=== PATIENT | male | born 1990 | race African-American/Black ===

== ENCOUNTER 2017-01-01 06:27 | Emergency (ER) | payer MEDICAID ==
[~2017-01-01] VITALS: Ht 167.6 cm; Wt 104.0 kg
[2017-01-01 06:57] LABS: BASOPHILS % 0.4 % (0.0-2.0); EOSINOPHILS % 0.1 % (0.0-5.0); HEMATOCRIT. 41.8 % (42.0-52.0); HEMOGLOBIN. 14.4 g/dL (14.0-18.0); LYMPHOCYTES % 18.6 % (20.0-50.0); MEAN CORPUSCULAR HEMOGLOBIN 30.4 pg (28.0-32.0); MEAN CORPUSCULAR VOLUME 88.6 fL (80.0-94.0); MEAN PLATELET VOLUME 7.6 fl (7.4-10.4); MONOCYTES % 14.7 % (2.0-8.0); NEUTROPHILS % 66.2 % (40.0-76.0); PLATELET 401 x1000/uL (130-400); RED BLOOD CELL COUNT 4.72 mill/uL (4.7-6.1); RED CELL DISTRIBUTION WIDTH 15.1 % (11.6-14.6)
[2017-01-01 06:58] LABS: CARBON DIOXIDE 22 mEq/L (21-32); CHLORIDE 110 mEq/L (98-107); ETHANOL BLOOD 104 mg/dL
[2017-01-01] MEDS ORDERED: LORAZEPAM 1MG TABLET PO ONE (07:00)
[2017-01-01 07:53] LABS: *AMPHETAMINES SCREEN URINE NEGATIVE (NEGATIVE); *BARBITURATES SCREEN URINE NEGATIVE (NEGATIVE); *BENZODIAZEPINES SCREEN URINE NEGATIVE (NEGATIVE); *COCAINE SCREEN URINE NEGATIVE (NEGATIVE); CANNABINOID URINE SCREEN NEGATIVE (NEGATIVE); METHADONE URINE SCREEN NEGATIVE (NEGATIVE); OPIATES URINE SCREEN NEGATIVE (NEGATIVE); PHENCYCLIDINE URINE SCREEN NEGATIVE (NEGATIVE)
[2017-01-01 13:29] VITALS: BP 156/80
== END 2017-01-01 14:32 | disposition home or self-care (01) ==
LOC: EDBD 06:27 → ER 06:27
DX: F20.9 Schizophrenia, unspecified (principal); F10.129 Alcohol abuse with intoxication, unspecified; R45.851 Suicidal ideations; R44.0 Auditory hallucinations
CPT/HCPCS: 36415; 80048; 80305; 80307; 80329; 85025; 99284; G0482; Z7610

== ENCOUNTER 2017-09-12 20:14 | Emergency (ER) | payer MEDICAID ==
[~2017-09-12] VITALS: Ht 177.8 cm; Wt 100.0 kg
[2017-09-12] MEDS ORDERED: LIDOCAINE HCL 1%/EPI 1:200,000 30 ML VIAL MC ONE (20:45)
[2017-09-12] MEDS ORDERED: BACITRACIN ZINC OINT UDPKT TOP ONE (20:45)
[2017-09-12] MEDS ORDERED: TETANUS, DIPHTHERIA, PERTUSSIS VAC/PF 0.5ML (>7YR OLD) IM ONE (20:45)
[2017-09-12] MEDS ORDERED: ACETAMINOPHEN 325MG TABLET PO ONE (21:00)
[2017-09-12 21:22] LABS: HEMATOCRIT. 43.6 % (42.0-52.0); HEMOGLOBIN. 14.7 g/dL (14.0-18.0); MEAN CORPUSCULAR HEMOGLOBIN 31.3 pg (28.0-32.0); MEAN CORPUSCULAR VOLUME 92.3 fL (80.0-94.0); MEAN PLATELET VOLUME 8.2 fl (7.4-10.4); PLATELET 337 x1000/uL (130-400); RED BLOOD CELL COUNT 4.72 mill/uL (4.7-6.1); RED CELL DISTRIBUTION WIDTH 16.4 % (11.6-14.6)
[2017-09-12 21:27] LABS: CHLORIDE 107 mEq/L (98-107); ETHANOL BLOOD 263 mg/dL
[2017-09-12 21:46] LABS: *AMPHETAMINES SCREEN URINE NEGATIVE (NEGATIVE); *BARBITURATES SCREEN URINE NEGATIVE (NEGATIVE); *BENZODIAZEPINES SCREEN URINE PRESUMTIVE POSITIVE (NEGATIVE); *COCAINE SCREEN URINE NEGATIVE (NEGATIVE); METHADONE URINE SCREEN NEGATIVE (NEGATIVE); OPIATES URINE SCREEN NEGATIVE (NEGATIVE)
[2017-09-12 21:47] LABS: CANNABINOID URINE SCREEN NEGATIVE (NEGATIVE); PHENCYCLIDINE URINE SCREEN NEGATIVE (NEGATIVE)
[2017-09-12 21:56] LABS: PLATELET ESTIMATE NORMAL
[2017-09-12 23:00] VITALS: BP 124/76
== END 2017-09-12 23:02 | disposition home or self-care (01) ==
LOC: ER 20:27
DX: S01.412A Laceration without foreign body of left cheek and temporomandibular area, initial encounter (principal); F20.9 Schizophrenia, unspecified; F17.200 Nicotine dependence, unspecified, uncomplicated; Y08.89XA Assault by other specified means, initial encounter; Y93.89 Activity, other specified; Y92.89 Other specified places as the place of occurrence of the external cause; Y99.8 Other external cause status
CPT/HCPCS: 12013; 36415; 70450; 80048; 80305; 85025; 90471; 90715; 99285; G0482; X7700; Z7610

== ENCOUNTER 2018-08-14 00:54 | Emergency (ER) | payer MEDICAID ==
[~2018-08-14] VITALS: Ht 167.6 cm; Wt 88.5 kg
[2018-08-14 02:21] LABS: CLARITY URINE CLEAR (CLEAR); COLOR URINE YELLOW (YELLOW); KETONES URINE NEGATIVE (NEGATIVE); LEUKOCYTE ESTERASE URINE NEGATIVE (NEGATIVE); NITRITE URINE NEGATIVE (NEGATIVE); OCCULT BLOOD URINE TRACE (NEGATIVE); PH URINE 5.5 (4.5-8.0); PROTEIN URINE 2+ (NEGATIVE); SPECIFIC GRAVITY URINE 1.017 (1.005-1.030); UROBILINOGEN URINE 0.2 E.U./dL (0.2-1.0)
[2018-08-14 02:24] LABS: CHLORIDE 106 mEq/L (98-107)
[2018-08-14 02:25] LABS: HEMOGLOBIN. 14.9 g/dL (14.0-18.0); MEAN CORPUSCULAR VOLUME 91.4 fL (80.0-94.0); MEAN PLATELET VOLUME 8.3 fl (7.4-10.4); PLATELET 362 x1000/uL (130-400); RED BLOOD CELL COUNT 4.82 mill/uL (4.7-6.1)
[2018-08-14 02:27] LABS: ETHANOL BLOOD 264 mg/dL
[2018-08-14 02:32] LABS: *AMPHETAMINES SCREEN URINE NEGATIVE (NEGATIVE); *BARBITURATES SCREEN URINE NEGATIVE (NEGATIVE); *BENZODIAZEPINES SCREEN URINE PRESUMTIVE POSITIVE (NEGATIVE); *COCAINE SCREEN URINE NEGATIVE (NEGATIVE); METHADONE URINE SCREEN NEGATIVE (NEGATIVE)
[2018-08-14 02:33] LABS: CANNABINOID URINE SCREEN NEGATIVE (NEGATIVE); OPIATES URINE SCREEN NEGATIVE (NEGATIVE); PHENCYCLIDINE URINE SCREEN NEGATIVE (NEGATIVE)
[2018-08-14] MEDS ORDERED: POTASSIUM CHLORIDE 20MEQ TABLET SR PO ONE (03:45)
[2018-08-14] MEDS ORDERED: HALOPERIDOL 2MG TABLET PO ONE (04:00)
[2018-08-14] MEDS ORDERED: HALOPERIDOL LACTATE 5MG/ML VIAL IM ONE (04:30)
[2018-08-14] MEDS ORDERED: ONDANSETRON 4MG ODT PO ONE (04:30)
[2018-08-14 07:47] LABS: PLATELET ESTIMATE NORMAL
[2018-08-14] MEDS ORDERED: LORAZEPAM 1MG TABLET PO ONE (22:45)
[2018-08-15] MEDS ORDERED: LORAZEPAM 1MG TABLET PO ONE ×2 (08:30→17:15)
[2018-08-15 18:43] VITALS: BP 122/76
== END 2018-08-15 18:44 | disposition home or self-care (01) ==
LOC: ER 00:54
DX: R45.851 Suicidal ideations (principal); F32.3 Major depressive disorder, single episode, severe with psychotic features; R45.1 Restlessness and agitation; E87.6 Hypokalemia; Z91.14 Patient's other noncompliance with medication regimen
CPT/HCPCS: 36415; 80053; 80305; 80307; 80329; 81003; 82248; 84132; 85025; 87186; 96372; 99285; J1630; Q0162; G0482

== ENCOUNTER 2018-08-22 21:34 | Emergency (ER) | payer MEDICAID ==
[~2018-08-22] VITALS: Ht 170.2 cm; Wt 78.0 kg
[2018-08-23] MEDS ORDERED: TETANUS, DIPHTHERIA, PERTUSSIS VAC/PF 0.5ML (>7YR OLD) IM ONE (00:45)
[2018-08-23 01:46] LABS: BASOPHILS % 0.7 % (0.0-2.0); EOSINOPHILS % 0.2 % (0.0-5.0); HEMATOCRIT. 46.2 % (42.0-52.0); HEMOGLOBIN. 15.4 g/dL (14.0-18.0); LYMPHOCYTES % 36.2 % (20.0-50.0); MEAN CORPUSCULAR HEMOGLOBIN 31.1 pg (28.0-32.0); MEAN CORPUSCULAR VOLUME 93.3 fL (80.0-94.0); MEAN PLATELET VOLUME 7.9 fl (7.4-10.4); MONOCYTES % 14.1 % (2.0-8.0); NEUTROPHILS % 48.8 % (40.0-76.0); PLATELET 392 x1000/uL (130-400); RED BLOOD CELL COUNT 4.95 mill/uL (4.7-6.1)
[2018-08-23 01:49] LABS: CHLORIDE 111 mEq/L (98-107)
[2018-08-23 02:03] LABS: ETHANOL BLOOD 413 mg/dL
[2018-08-23 06:25] LABS: CLARITY URINE CLEAR (CLEAR); COLOR URINE YELLOW (YELLOW); KETONES URINE NEGATIVE (NEGATIVE); LEUKOCYTE ESTERASE URINE NEGATIVE (NEGATIVE); NITRITE URINE NEGATIVE (NEGATIVE); OCCULT BLOOD URINE NEGATIVE (NEGATIVE); PROTEIN URINE 1+ (NEGATIVE); SPECIFIC GRAVITY URINE 1.015 (1.005-1.030); UROBILINOGEN URINE 0.2 E.U./dL (0.2-1.0)
[2018-08-23 06:37] LABS: *AMPHETAMINES SCREEN URINE NEGATIVE (NEGATIVE); *BARBITURATES SCREEN URINE NEGATIVE (NEGATIVE); *BENZODIAZEPINES SCREEN URINE NEGATIVE (NEGATIVE)
[2018-08-23 06:38] LABS: *COCAINE SCREEN URINE NEGATIVE (NEGATIVE); CANNABINOID URINE SCREEN NEGATIVE (NEGATIVE); METHADONE URINE SCREEN NEGATIVE (NEGATIVE); OPIATES URINE SCREEN NEGATIVE (NEGATIVE); PHENCYCLIDINE URINE SCREEN NEGATIVE (NEGATIVE)
[2018-08-23] MEDS ORDERED: LORAZEPAM 1MG TABLET PO ONE (13:00)
[2018-08-23] MEDS ORDERED: IOHEXOL-350 100 ML BOTTLE ONE (19:07)
[2018-08-23 19:30] VITALS: BP 131/81
[2018-08-23] MEDS ORDERED: SODIUM CHLORIDE 0.45% 1,000 ML IV SCH (22:33)
[2018-08-23] MEDS ORDERED: CLONIDINE 0.1MG TABLET PO PRN (22:45)
[2018-08-23] MEDS ORDERED: HYDROCODONE/ACETAMINOPHEN 5/325MG TABLET PO PRN (22:45)
[2018-08-23] MEDS ORDERED: MAGNESIUM HYDROXIDE 400MG/5ML 30ML UDC PO PRN (22:45)
[2018-08-23] MEDS ORDERED: LORAZEPAM 2MG/ML CPJ IV PRN (22:45)
[2018-08-23] MEDS ORDERED: MORPHINE SULFATE 4 MG/ML CPJ (NOT FOR IM USE) IV PRN (22:45)
[2018-08-23] MEDS ORDERED: ENOXAPARIN 40MG/0.4ML SYR SUBCUT SCH (22:45)
[2018-08-23] MEDS ORDERED: ONDANSETRON HCL 4MG/2ML INJ IV PRN (22:45)
[2018-08-24] MEDS ORDERED: THIAMINE HCL 100MG TABLET PO SCH (09:00)
[2018-08-24] MEDS ORDERED: FOLIC ACID 1MG TABLET PO SCH (09:00)
[2018-08-24] MEDS ORDERED: FERROUS SULFATE 325MG TABLET PO SCH (09:00)
== END 2018-08-23 20:30 | disposition home or self-care (01) ==
LOC: ER 21:51 → CANBEDREQ 08-24 01:01
DX: S01.01XA Laceration without foreign body of scalp, initial encounter (principal); F10.129 Alcohol abuse with intoxication, unspecified; W01.0XXA Fall on same level from slipping, tripping and stumbling without subsequent striking against object, initial encounter; Y93.89 Activity, other specified; Y92.89 Other specified places as the place of occurrence of the external cause; Y99.8 Other external cause status
CPT/HCPCS: 12001; 36415; 70450; 70496; 71045; 80053; 80305; 81003; 85025; 87186; 90471; 90715; 93005; 99284; Q9967; Z7610